=== PATIENT | female | born 1990 | race Caucasian/White ===

== ENCOUNTER 2025-05-22 09:01 | Outpatient (RCR) | payer OTHER, SELFPAY ==
[2025-05-22 09:51] VITALS: PULSE 83
== END 2025-05-27 09:18 | disposition home or self-care (01) ==
LOC: ANHOBOP 09:01
PROVIDERS: Visit Provider Obstetrics & Gynecology
DX: O48.0 Post-term pregnancy (principal); Z3A.40 40 weeks gestation of pregnancy
CPT/HCPCS: 59025

== ENCOUNTER 2025-05-23 23:24 | Observation (INO) | payer OTHER, SELFPAY ==
--- OUTSIDE RECORDS SUMMARY | 2025-05-24 02:51 | XMS_ITS | Encounter Summary ---
Author Organization [facility] Address 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
--- OUTSIDE RECORDS SUMMARY | 2025-05-24 02:51 | XMS_ITS | Clinical Summary ---
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
--- OUTSIDE RECORDS SUMMARY | 2025-05-24 02:51 | XMS_ITS | Clinical Summary ---
Author Organization [facility] Address [address] [place] [address] Phone Care Team Providers Care Oil Processing Technician Name Role Phone Provider, None Primary Care Provider Unavailabl e Allergies No known active allergies Medications ibuprofen (MOTRIN) 800 MG Tablet Take 1 Tab by mouth every 8 hours as needed for Pain. 30 Tab 0 07/22/2016 Active HYDROcodone-acet aminophen (NORCO) 5-325 MG Tablet Take 1-2 Tabs by mouth every 4 hours as needed for Pain. 20 Tab 0 07/22/2016 Active Social History Tobacco Use Types Packs/Day Years Used Date Smoking Tobacco: Every Day Cigarettes Alcohol Use Standard Drinks/Week Comments No 0 (1 standard drink = 0.6 oz pur e alcohol) Comments No Sex and Gender Information Value Date Recorded Sex Assigned at Not on file Legal Sex Female 11:35 PM CDT Gender Identity Not on file Sexual Orientation Not on file Last Filed Vital Signs Vital Sign Reading Time Taken Comments Blood Pressure 127/89 07/22/2016 6:58 PM CDT Pulse 89 07/22/2016 6:58 PM CDT Temperature 36.2 C (97.2 F) 07/22/2016 6:58 PM CDT Respiratory Rate 14 07/22/2016 6:58 PM CDT Oxygen Saturation 100% 07/22/2016 6:58 PM CDT Inhaled Oxygen Concentration - - Weight - - Height - - Body Mass Index - - Plan of Treatment Health Maintenance Due Date Last Done Comments Hepatitis C Virus (HCV) Screening 1990 TdaP Immunization 1990 Hepatitis B Immunization (1 of 3 - 19+ 3-dose series) 2009 Pap Smear 2011 Human Papillomavirus (HPV) Immunization (1 - 3-dose SCDM series) 2017 Cervical Cancer Screening (CCS) 01/20/2020 HPV/Cotest 01/20/2020 SARS-COV-2 Immunization (1 - 2023-25 season) 2024 Influenza Immunization (#1) 2025 Respiratory Syncytial Virus (RSV) Immunization (Adult) (1 - 1-dose 75+ series) 2065 Meningococcal Immunization (ACWY) Aged Out No longer eligible based on patient's age to complete this topic Pneumococcal Immunization Combined Aged Out No longer eligible based on patient's age to complete this topic Rotavirus Immunization Aged Out No lo nger eligible based on patient's age to complete this topic Insurance [place]ICA[place] Care Teams Oil Processing Technician Relationship Specialty Start Date End Date Provider, None [place] PCP - General 07/22/16
--- OUTSIDE RECORDS SUMMARY | 2025-05-24 02:51 | XMS_ITS | Clinical Summary ---
Author Organization [facility] Address [address] [place] [address] Care Team Providers Care Liquid Sugar Fortifier Name Role Phone Unavailable Primary Care Provider Unavailabl e Source Comments [facility],non-owned Affiliates and Associated Physician Practices is amultiple site organization consisting of ambulatory clinics and hospital sitesin [place], [place], [place] and [place]. This disclosure is being madepursuant to the Care Everywhere program and may not contain all information available regarding this patient. Last updated 18.[facility] Allergies No known active allergies Medications * This document contains information received from the source organization and may not represent a complete record from that organization. * Be aware that medications may not be up to date on this document. Alwaysverify current medications with the patient. buPROPion XL 24hr (Wellbutrin-XL) 150 MG tablet Take 1 (one) tablet by mouth once daily Active FLUoxetine (PROzac) 40 MG capsule Take 1 (one) capsule by mouth once daily Active lurasidone (Latuda) 80 MG tablet Take 1 (one) tablet by mouth daily with food Active prazosin (Minipress) 1 MG capsule Take 1 (one) capsule by mouth at bedtime Active promethazine (Phenergan) 25 MG tablet Take 1 (one) tablet by mouth every 6 hours as needed for Nausea/Vomitin g Active Vit-DSS-Fe Fum-FA ( vitamin with iron) tablet Take 1 (one) tablet by mouth once daily Active loratadine (Claritin) 10 MG tabletIndicatio ns:Seasonal Allergic Rhinitis Take 1 (one) tablet by mouth once daily as needed for Runny Nose or Allergies Reasons: Hayfever Active Doxylamine Succinate, Sleep, (UNISOM PO) Take 1 tablet by mouth as needed (PM for nausea) Active pyridoxine (Vitamin B-6) 25 MG tabletIndicatio ns:Nausea and/or Vomiting in Take 2 (two) tablets by mouth once daily Reasons: Nausea and Vomiting in Active [place]-3 Fatty Acids (fish oil) 500 MG capsule Take 1,000 (one thousand) mg by mouth once daily Active Family History Medical History Relation Name Comments Arthritis - Rheumatoid Mother Autoimmune Disease Mother Cancer - Breast Other Paternal Aunt Cancer - Ovarian Paternal Grandmother Relation Name Status Comments Mother Other Paternal Aunt Paternal Grandmother Social History Tobacco Use Types Packs/Day Years Used Date Smoking Tobacco: Never Smokeless Tobacco: Never Tobacco Cessation:Counseling Given: Not Answered Alcohol Use Standard Drinks/Week Comments Not Currently 0 (1 standard drink = 0.6 oz pur e alcohol) Estimated Date of Delivery Comme nts Yes 05/22/2025 Based on last me nstrual period of 08/15/2024 Sex and Gender Information Value Date Recorded Sex Assigned at Not on file Legal Sex Female 5:10 AM HOSPITAL RECRUITER Gender Identity Not on file Sexual Orientation Not on file Last Filed Vital Signs Vital Sign Reading Time Taken Comments Blood Pressure 113/76 11/02/2024 8:51 AM HOSPITAL RECRUITER Pulse 70 11/02/2024 8:51 AM HOSPITAL RECRUITER Temperature - - Respiratory Rate - - Oxygen Saturation - - Inhaled Oxygen Concentration - - Weight 86.2 kg (190 lb) 11/02/2024 8:51 AM HOSPITAL RECRUITER Height 179.1 cm (5' 10.5) 11/02/2024 8:51 AM CS T Body Mass Index 26.88 11/02/2024 8:51 AM HOSPITAL RECRUITER Plan of Treatment Health Maintenance Due Date Last Done Comments HIV SCREENING 2005 HEPATITIS C SCREENING 01/15/2008 DTAP/TDAP/TD VACCINES (1 - Tdap) 2009 HEPATITIS B VACCINE (1 of 3 - 19+ 3-dose series) 2009 HPV VACCINE (1 - 3-dose SCDM series) 2017 COVID-19 VACCINE (2023-2 5 season) 2024 09/11/2021, 01/10/2021, 12/20/2020 DEPRESSION SCREENING 09/23/2024 OB-ONE HOUR GLUCOSE 02/13/2025 OB-TDAP CURRENT 02/20/2025 OB-RHOGAM INJECTION 02/27/2025 OB-GROUP B STREP SCREEN 04/17/2025 INFLUENZA VACCINE (#1) 2025 , 07/29/2023 PAP SMEAR 08/31/2027 08/31/2024, 08/31/2024 ZOSTER VACCINE (1 of 2) 01/20/2040 HIB VACCINE Aged Out No longer eligi ble based on patient's age to complete this topic MENINGOCOCCAL (Group B) VACCINE SHARED DECISION-MAKING Aged Out No longer eligible based on patient's age to complete this topic MENINGOCOCCAL GROUPS A/C/Y/W VACCINE Aged Out No longer eligible b ased on patient's age to complete this topic PNEUMOCOCCAL VACCINE Aged Out No long er eligible based on patient's age to complete this topic Respiratory Syncytial Virus (RSV) Vaccine Pt: or over 60 yrs (No Doses Required) Completed Insurance ([address]
--- OUTSIDE RECORDS SUMMARY | 2025-05-24 02:52 | XMS_ITS | Encounter Summary ---
Author Organization [facility] Address [address] [place] [address] Care Team Providers Care Harpsichord Maker Name Role Phone Nancy Parra MD Primary Care Provider [phone] Encounter Details Date Type Department Care Team (Late st Contact Info) Description 06/20/[address] [facility] Family Medicine [address] [place] [address] Isaias Weir, DO [address] [address] Social History Tobacco Use Types Packs/Day Years Used Date Smoking Tobacco: Never Assessed Comments Unknown Sex and Gender Information Value Date Recorded Sex Assigned at Not on file Legal Sex Female 3:17 AM PURCHASING INTERNSHIP Gender Identity Not on file Sexual Orientation Not on file documented as of this encounter Plan of Treatment Not on file documented as of this encounter Visit Diagnoses Not on filedocumented in this encounter Care Teams Harpsichord Maker Relationship Specialty Start Date End Date Nancy Parra MD PCP - General 10/07/08 documented as of this encounter
--- OUTSIDE RECORDS SUMMARY | 2025-05-24 02:52 | XMS_ITS | Clinical Summary ---
Author Organization [facility] Address [address] [place] [address] Care Team Providers Care Enrollment Manager Name Role Phone No, Physician Primary Care Provider [phone] Allergies No known active allergies Medical History Medical History Date Comments Hx Other Medical biplor disorder Family History Medical History Relation Name Comments Other Father 2 Bipolar D/O; Other Mother 2 Alive and well; Relation Name Status Comments Father 1 Alive Father 2 Mother 1 Alive Mother 2 Social History Tobacco Use Types Packs/Day Years Used Date Smoking Tobacco: Never Assessed Personal Safety Answer Date Recorded Have you ever been in or are you currently in a harmful physical or emotional relationship or is someone making you feel afraid or unsafe? 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 Gender Identity Not on file Sexual Orientation Not on file Obstetrics History Last Filed Vital Signs Vital Sign Reading Time Taken Comments Blood Pressure 111/70 12/25/2023 7:40 AM CDT Pulse 79 12/25/2023 7:40 AM CDT Temperature 37 C (98.6 F) 12/25/2023 7:40 AM CDT Respiratory Rate 14 12/25/2023 7:40 AM CDT Oxygen Saturation 96% 12/25/2023 7:40 AM CDT Inhaled Oxygen Concentration - - Weight 77.1 kg (170 lb) 12/24/2023 9:42 PM CDT Height 177.8 cm (5' 10) 12/24/2023 9:42 PM CDT Body Mass Index 24.39 12/24/2023 9:42 PM CDT Plan of Treatment Health Maintenance Due Date Last Done Comments Cervical Cancer Screening 1990 Depression Screening 1990 Hepatitis C Screening 1990 DTaP/Tdap/Td Vaccine (1 - Tdap) 2001 Varicella Vaccines (1 of 2 - 13+ 2-dose series) 2003 Hepatitis B Screening 01/20/2008 Regular Well Visit/Exam 18-64 01/20/2008 HPV Vaccines (1 - 3-dose SCD M series) 2017 Covid-19 Vaccine (2023-2 5 season) 2024 09/11/2021, 01/10/2021, 12/20/2020 Influenza Vaccine (#1) 2025 , 06/24/2019 Pneumococcal vaccine <65 Aged Out No longer eligible based on patient's age to complete this topic Insurance [employer] OOS Care Teams Enrollment Manager Relationship Specialty Start Date End Date No, Physician PCP - General 12/24/23
--- NOTE | 2025-06-13 20:17 | PM.OBTRLD ---
OB - Triage/Final Diagnosis Visit Information Comments/Additional reasons for admission: I have assessed the risk for this patient, Anika Azar, and determined that she would benefit from observation care. Final Diagnosis (1) False labor: Code(s): O47.9 - False labor, unspecified Status: Acute
== END 2025-05-24 02:57 | disposition home or self-care (01) ==
PROVIDERS: Admitting Provider Obstetrics & Gynecology; Visit Provider Obstetrics & Gynecology
DX: O47.9 False labor, unspecified (principal)
CPT/HCPCS: G0378; G0379

== ENCOUNTER 2025-05-24 15:06 | Inpatient (IN) | payer OTHER, SELFPAY ==
[2025-05-24] VITALS (117 sets, daily range): BP systolic 93–153; BP diastolic 40–95; PULSE 58–119; TEMP 36.6; O2SAT 94–100; BMI 32.8
--- NOTE | 2025-05-24 01:30 | OBPPTRN ---
Patient transferred to post room #286 via wheelchair. Support person present. Oriented to unit, room, information board, rooming in, admission packet and security measures. Patient verbalizes understanding.
--- OUTSIDE RECORDS SUMMARY | 2025-05-24 15:28 | XMS_ITS | Encounter Summary ---
Author Organization [facility] Address [address] [place] [address] Care Team Providers Care Braid Folder Name Role Phone Nancy Parra MD Primary Care Provider [phone] Encounter Details Date Type Department Care Team (Late st Contact Info) Description 06/20/2005 Outpatient Historical [facility] Family Medicine David Mustafa [address] [place] [address] Isaias Weir, DO [address] [address] Social History Tobacco Use Types Packs/Day Years Used Date Smoking Tobacco: Never Assessed Comments Unknown Sex and Gender Information Value Date Recorded Sex Assigned at Not on file Legal Sex Female 3:17 AM TAX ECONOMIST Gender Identity Not on file Sexual Orientation Not on file documented as of this encounter Plan of Treatment Not on file documented as of this encounter Visit Diagnoses Not on filedocumented in this encounter Care Teams Braid Folder Relationship Specialty Start Date End Date Nancy Parra MD PCP - General 10/07/08 documented as of this encounter
--- OUTSIDE RECORDS SUMMARY | 2025-05-24 15:28 | XMS_ITS | Clinical Summary ---
Author Organization [facility] Address [address] [place] [address] Care Team Providers Care Hand Trimmer Name Role Phone Unavailable Primary Care Provider Unavailabl e Source Comments [facility],non-owned Affiliates and Associated Physician Practices is amultiple site organization consisting of ambulatory clinics and hospital sitesin [place], [place], [place] and [place]. This disclosure is being madepursuant to the Care Everywhere program and may not contain all information available regarding this patient. Last updated 18.[facility] Allergies No known active allergies Medications * [...] daily Reasons: Nausea and Vomiting in Active [place]-3 Fatty Acids (fish oil) 500 MG capsule [...] on file Legal Sex Female 5:10 AM AGRICULTURAL RESEARCHER Gender Identity Not on file Sexual Orientation Not on file Last Filed Vital Signs Vital Sign Reading Time Taken Comments Blood Pressure 113/76 11/02/2024 8:51 AM AGRICULTURAL RESEARCHER Pulse 70 11/02/2024 8:51 AM AGRICULTURAL RESEARCHER Temperature - - Respiratory Rate - - Oxygen Saturation - - Inhaled Oxygen Concentration - - Weight 86.2 kg (190 lb) 11/02/2024 8:51 AM AGRICULTURAL RESEARCHER Height 179.1 cm (5' 10.5) 11/02/2024 8:51 AM CS T Body Mass Index 26.88 11/02/2024 8:51 AM AGRICULTURAL RESEARCHER Plan of Treatment Health Maintenance Due Date [...] 60 yrs (No Doses Required) Completed Insurance ([address] [facility] Address: [facility] [address] [place] [address]
--- OUTSIDE RECORDS SUMMARY | 2025-05-24 15:28 | XMS_ITS | Clinical Summary ---
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
--- OUTSIDE RECORDS SUMMARY | 2025-05-24 15:28 | XMS_ITS | Clinical Summary ---
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
--- OUTSIDE RECORDS SUMMARY | 2025-05-24 15:28 | XMS_ITS | Clinical Summary ---
Author Organization [facility] Address [address] [place] [address] Phone Care Team Providers Care Plug Stitcher Name Role Phone Provider, None Primary Care [...] to complete this topic [place] [address] Care Teams Plug Stitcher Relationship Specialty Start Date End Date Provider, None [place] PCP - General 07/22/16
--- OUTSIDE RECORDS SUMMARY | 2025-05-24 15:28 | XMS_ITS | Encounter Summary ---
Author Organization [facility] Address [address] [place] [address] Care Team Providers Care Nurse Paralegal Name Role Phone Nancy Parra MD Primary Care Provider [phone] Encounter Details Date Type Department Care Team (Latest Contact Info) Description 11/08/2008 Outpatient Historical HIS CARDIOPULMONARY Poncho Sommer MD NO ADDRESS ON FILE Dizziness and Giddiness Social History Tobacco Use Types Packs/Day Years Used Date Smoking Tobacco: Never Assessed Comments Unknown Sex and Gender Information Value Date Recorded Sex Assigned at Not on file Legal Sex Female 3:17 AM PROFESSOR OF RHETORIC Gender Identity Not on file Sexual Orientation Not on file documented as of this encounter Plan of Treatment Not on file documented as of this encounter Visit Diagnoses Diagnosis Dizziness and giddiness documented in this encounter Care Teams Nurse Paralegal Relationship Specialty Start Date End Date Nancy Parra MD PCP - General 10/07/08 documented as of this encounter
[2025-05-24] MEDS: LACTATED RINGERS 1,000 ML 125 ML IV CONT ×2 (15:56→17:35)
[2025-05-24 16:01] LABS: Hematocrit 37.1 % (37.0-47.0); Hemoglobin 12.7 g/dL (12.0-15.0); Immature Granulocyte Percent A 0.9 % (0-0.5); Lymphocytes Absolute Auto 1.49 K/mm3 (0.9-3.2); Mean Corpuscular HGB Conc 34.2 g/dl (32-36); Mean Corpuscular Hemoglobin 30.4 pg (26-34); Mean Corpuscular Volume 88.8 fl (80-100); Nucleated Red Blood Cells Absolute Auto 0.000 K/mm3 (0.0-0.012); Nucleated Red Blood Cells Perc 0.0 % (0.0-0.2); Platelet Count Result 202 k/mm3 (150-375); Red Blood Count 4.18 M/mm3 (4.2-5.4); White Blood Count 19.7 K/mm3 (4.5-10.0)
--- NOTE | 2025-05-24 16:07 | LDADM ---
This patient, Anika Azar, was admitted to Labor/Delivery/Recovery 106 on 05/24/25 at 15:06. Plans for labor, pain management and were discussed with patient. Patient/family oriented to hospital policies and general routines including ID bracelet, bed and alarms, visiting hours, pain management, procedures, bathroom and other care routines, personal items, smoking policy, room service/diet and guest tray routines, infant security routines, and visiting hours. Patient/Family are encouraged to report perceived risks to care and to ask questions if they do not understand what they are told or what they should do. See OBIX for further documentation.
[2025-05-24] MEDS: AMPICILLIN SODIUM 2 GM in SODIUM CHLORIDE 0.9% IV 100 ML 200 ML IVPB (16:29)
--- NOTE | 2025-05-24 16:32 | WPDANESEPP ---
Anes - Eval Pre Procedure Procedure: Labor Epidural Date/Time: 05/24/25 16:32 Surgeon: Halima Preop Diagnosis: Labor Pain Pre Op Diagnosis: labor/iol Patient Data Age: 35 Gender: F Height: 1.78 m Weight: 104 kg Last Vital Signs Pulse 72 05/24/25 16:30 BP 140/89 05/24/25 16:30 O2 Del Method Room Air 05/24/25 16:00 Allergies Allergy/AdvReac Type Severity Reaction Status Date / Time No Known Allergies Allergy Mild Verified 05/24/25 16:20 Home Medications ?Medication ?Instructions ?Recorded ?Confirmed ?Type bupropion HCl 150 mg 24 hr tablet, 150 mg PO DAILY 05/22/25 05/24/25 History extended release (Wellbutrin XL) fluoxetine 40 mg capsule 40 mg PO DAILY 05/22/25 05/24/25 History lurasidone 80 mg tablet (Latuda) 80 mg PO DAILY 05/22/25 05/24/25 History vit no.95-ferrous 1 tablet PO DAILY 05/22/25 05/24/25 History fumarate 28 mg-folic acid 800 mcg tablet () Laboratory Tests 05/24/25 15:55 WBC 19.7 H K/mm3 (4.5-10.0) RBC 4.18 L M/mm3 (4.2-5.4) Hgb 12.7 g/dL (12.0-15.0) Hct 37.1 % (37.0-47.0) MCV 88.8 fl (80-100) MCH 30.4 pg (26-34) MCHC 34.2 g/dl (32-36) RDW 12.7 % (11.5-14.5) Plt Count 202 k/mm3 (150-375) MPV 12.0 H fl (7.4-10.4) Immature Gran % (Auto) 0.9 H % (0-0.5) Neut % (Auto) 85.2 H % (45.5-73.1) Lymph % (Auto) 7.6 L % (18.3-44.2) [place] % (Auto) 5.3 % (2.6-8.5) Eos % (Auto) 0.7 % (0-4.4) Baso % (Auto) 0.3 % (0.2-1.2) Lymph # (Auto) 1.49 K/mm3 (0.9-3.2) [place] # (Auto) 1.0 H K/mm3 (0.1-0.6) Eos # (Auto) 0.1 K/mm3 (0-0.3) Baso # (Auto) 0.1 K/mm3 (0.0-0.1) Abs Immat Gran (auto) 0.17 H K/mm3 (0.00-0.031) Absolute Neuts (auto) 16.8 H K/mm3 (1.3-6.7) Absolute Nucleated RBC 0.000 K/mm3 (0.0-0.012) Nucleated RBC % 0.0 % (0.0-0.2) Blood Type Pending Antibody Screen Pending Patient hx anesthesia problems: none Family hx anesthesia problems: none Results Review: All pre-operative results and documents have been reviewed as part of the pre-operative evaluation. [facility] Family History Family History Father Arrhythmia Mother Rheumatoid arthritis Grandparent Ovarian cancer Grandparent Throat cancer Social History Social History Smoking status: Former smoker Tobacco type: cigarettes and e-cigarettes/vaping Substance use: former Lack of Transportation: No Lack of Food: Never True Current Housing: I Have Housing Concerned About Future Housing: No Difficulty Paying Gas/Electric Bills: No Difficulty Paying for Meds: No Currently Unemployed: No Education: Bachelor's Degree Difficulty w/ Childcare or Family Care: No Spiritual care concerns: No Exam Day of Procedure 05/24/25 16:32 Patient weight: overweight Heart: regular rate and rhythm Lungs: normal air movement Airway: Mallampati scale class II Neurological: alert and oriented
[2025-05-24 16:44] LABS: Syphilis IgG/IgM Antibody Non-Reactive (Nonreactive)
[2025-05-24 17:19] LABS: OBXCEM ROM Plus Negative (Negative)
[2025-05-24] MEDS: AMPICILLIN SODIUM 1 GM in SODIUM CHLORIDE 0.9% IV 50 ML 100 ML IVPB (20:03)
--- NOTE | 2025-05-24 21:46 | WPDHPUPDATE1 ---
History and Physical Update Update Date/Time: 05/24/25 21:46 35-year-old primiparous female at 38 weeks gestation who presented in labor. She is 9 cm, artificial rupture of membranes-clear fluid. 9 cm, fully effaced, 0 station. Reassuring status. History and Physical has been reviewed, including an updated exam of the patient. There are NO changes in the patient's condition. Risks, benefits, and alternatives have been discussed and questions answered. Patient agrees to proceed with procedure.
[2025-05-24] MEDS: OXYTOCIN 30 UNITS/NS 500 ML 30 UNITS/500 ML BAG 999 UNITS IV CONT (22:00)
--- NOTE | 2025-05-24 22:22 | PM.OBPRVD ---
OB - Vaginal Delivery Note Procedure Delivery date: 05/24/25 Induction method: None Delivery augmentation: Rupture of Membranes Delivery monitor: External FHT and External Uterine Route of delivery: Episiotomy description: None Laceration Description: Perineal - 1st Degree, Vaginal and Labial Delivery repair: vicryl Specimen: Yes Quantitative Blood Loss (ml): 400 Anesthesia type: Epidural Disposition: Floor Complications: No immediate complications
[2025-05-24] MEDS: OXYTOCIN 30 UNITS/NS 500 ML 30 UNITS/500 ML BAG 125 UNITS IV CONT (22:35)
--- NOTE | 2025-05-24 22:56 | S_PTH ---
PATIENT: Anika Azar LOC: ANHOB2 U#:[id number] AGE/SX: 35/F ROOM: 286 RE05/24/[address]: Shawn Varghese MD : 1990 BED: 00 DIS: 05/26/2025 SPEC #: [id number] RECD: 05/25/25 07:39 STATUS: PAL REQ #: [id number] LISA: 05/24/25 22:[address]: Shawn Varghese DEPT: [facility] Surgical RECD BY: Dottie Murcia ENTERED: 05/25/25 07:39 SP TYPE: Surgical OTHR DR: ACADEMIC DEAN PHYSICIAN Tissues: A - Placenta Procedures: Hematoxylin and Eosin Stain Gross and Microscopic Level 5
[2025-05-25] VITALS (20 sets, daily range): BP systolic 112–127; BP diastolic 73–90; PULSE 75–97; RESP 16–18; TEMP 36.4–37; O2SAT 96–100
[2025-05-25] MEDS: LACTATED RINGERS 1,000 ML 999 ML (00:38)
[2025-05-25] MEDS: IBUPROFEN 600 MG TABLET PO ×3 (04:34→18:36)
[2025-05-25 05:59] LABS: Hematocrit 33.3 % (37.0-47.0); Hemoglobin 11.1 g/dL (12.0-15.0)
[2025-05-25] MEDS: ACETAMINOPHEN 325 MG TABLET 650 MG PO (08:29)
--- NOTE | 2025-05-25 09:00 | PC.NURSE ---
Introductions were made, then consulted with patient to assess needs related to . Mother led the conversation with her?plans to feed?her infant and the?experience so far. Mother states that she does have difficulty waking at times for feedings. Primary RN updated this RN that it has been ~ 6 hours since last feeding. Infant was easily stimulated to wake for feeding. Demonstrated waking by stimulating with massage touch, changing positions to encourage wakefulness, watching for early feeding cues, responsive feeding and feeding on demand. Mother works well with her infant with encouragement and education. Reviewed positioning and ear, shoulder, hip alignment, supporting the breast to facilitate a deep latch. Infant was [able] to maintain latch without pain to mother protecting the nipple with optimal positioning and latching. Parents voiced understanding of information, demonstrated learning and will call if there is a request for assistance. Reported to the Primary RN.
--- NOTE | 2025-05-25 15:56 | PC.NURSE ---
1556. Observed mother latching to the left breast in football position. was able to maintain an appropriate latch. Mother declines nipple pain throughout feeding. Encouraged mother to keep awake and nursing at the breast for as long as baby desires. Mother taught to listen for infant swallowing during feedings. Reviewed using the blue feeding sheet to record time and duration of feeding. Mother voiced understanding of the education shared, to call for assistance if the does not latch or if there is discomfort with . name/number on communication board. Reported to the Primary RN.?
--- NOTE | 2025-05-25 21:04 | P.PNOB_ITS ---
OB - PN: Subj Subjective Date/time seen: 05/25/25 21:04 Interval history: PPD#1 s/p Doing well, pain controlled Voiding without issue Tolerating general diet OB - PN: Obj Data Labs 05/25/25 04:39 Labs: Laboratory Results - last 24 hr 05/25/25 04:39 Hgb 11.1 L Hct 33.3 L OB - PN A/P Assessment and Plan (1) (spontaneous vaginal delivery): Code(s): O80 - Encounter for full-term uncomplicated delivery Status: Acute Plan day: 1 Plan: routine care Time Spent With Patient Time: Total time spent is greater than 50% in coordination of care (as documented) at patient's floor/unit and/or counseling patient: Review of Systems 2 Review of Systems: All systems reviewed & are unremarkable except as noted in HPI and below Exam 2 Const: General: comfortable and no acute distress O rientation/consciousness: patient oriented x3 Resp: Effort & Inspection: normal respiratory effort
[2025-05-26] MEDS: IBUPROFEN 600 MG TABLET PO ×2 (03:20→14:55)
--- NOTE | 2025-05-26 07:49 | P.PNOB_ITS ---
OB - PN: Subj Subjective Date/time seen: 05/26/25 07:49 Interval history: PPD#2 s/p Doing well, pain controlled Voiding without issue Tolerating general diet OB - PN: Obj Data Labs 05/25/25 04:39 OB - PN A/P Plan day: 2 Plan: routine care and discharge home Time Spent With Patient Time: Total time spent is greater than 50% in coordination of care (as documented) at patient's floor/unit and/or counseling patient: Review of Systems 2 Review of Systems: All systems reviewed & are unremarkable except as noted in HPI and below Exam 2 Const: General: cooperative, healthy appearing and comfortable Chest: Chest palpation & inspection: normal inspection of the chest Resp: Effort & Inspection: normal respiratory effort GI: Inspection: normal to inspection Skin: General skin exam: normal color
--- NOTE | 2025-05-26 07:51 | P.DS_ITS ---
DS: Admitting Diagnosis Discharge Date 05/26/25 Admitting Diagnosis labor DS: Discharge Diagnosis Discharge Diagnosis (1) (spontaneous vaginal delivery): Code(s): O80 - Encounter for full-term uncomplicated delivery Status: Acute OB - DS: Summary OB Procedures : None OB Procedures Intrapartum: Spontaneous Vag Delivery OB Procedures: : None Peripartum Data Laceration Description: Perineal - 1st Degree, Vaginal and Labial Episiotomy description: None Time Spent with Patient Time attestation: Total time spent providing and/or coordinating discharge services: DS: Data Data Completed and Pending Pending studies at discharge: Pending at discharge 05/24/25 22:56 Surgical [PTH] Routine Discharge Plan Discharge Attending physician on discharge: Shawn Varghese Discharging Clinician: Heide Adams Patient Disposition: Home Activity: pelvic rest Diet: regular Patient Instructions: Antibiotic Form Patient Language: Frisian Stand Alone Forms: General Discharge Information Follow-up/Referrals: Shawn Varghese MD [Physician, BRA[employer]ING MACHINE SETTER] - 4 Weeks Discharge Medications: Continued lurasidone [Latuda] 80 mg tablet 80 mg PO DAILY Rx Instructions: must administer with food (at least 350 calories) bupropion HCl [Wellbutrin XL] 150 mg tablet extended release 24 hr 150 mg PO DAILY fluoxetine 40 mg capsule 40 mg PO DAILY PNV no.95-ferrous fumarate-FA [] 28 mg iron- 800 mcg tablet 1 tablet PO DAILY Date of admission: 05/24/25 15:06 Primary Care Provider: PHYSICIAN,G[employer] OPERATION MANAGER Admitting Provider: Shawn Varghese Attending physician on admission: Shawn Varghese Condition: Stable
[2025-05-26 08:50] VITALS: BP 138/87; PULSE 90; RESP 18; TEMP 36.6; O2SAT 98
[2025-05-26] MEDS: MULTIVIT/MIN/PREN/FOL AC/IRON TABLET 1 TAB PO (09:23)
[2025-05-27 10:14] VITALS: BP 135/88; PULSE 82; RESP 18; TEMP 36.7; O2SAT 98
== END 2025-05-26 17:35 | disposition home or self-care (01) | DRG 807 ==
LOC: ANHLDR 15:27 → ANHOB2 05-25 01:30
PROVIDERS: Admitting Provider Obstetrics & Gynecology; Visit Provider Obstetrics & Gynecology
DX: O99.824 Streptococcus B carrier state complicating childbirth (principal); Z37.0 Single live birth; O70.0 First degree perineal laceration during delivery; Z3A.40 40 weeks gestation of pregnancy
CPT/HCPCS: 36415; 84112; 85014; 85018; 85025; 86593; 86850; 86900; 86901; 88307; A9270; J0290; J2590; J2795; J7120